=== PATIENT | female | born 1945 | race Caucasian/White ===

== ENCOUNTER → 2024-01-05 13:20 | Outpatient (REF) | payer MEDICARE, BC, SELFPAY | LOC: HWWDC 13:20 | PROVIDERS: ATTENDING PHYSICIAN Family Medicine | DX: Z12.31 Encounter for screening mammogram for malignant neoplasm of breast (principal) | CPT/HCPCS: 77063; 77067 ==

== ENCOUNTER → 2024-10-21 15:09 | Outpatient (REF) | payer MEDICARE, BC, SELFPAY ==
[2024-10-21 15:40] LABS: Hematocrit 46.3 % (37.0-47.0); Hemoglobin 15.7 g/dL (12.0-16.0); Mean Corp Hgb Conc. 33.9 g/dL (33.0-37.0); Mean Corpuscular Volume 88.0 fL (81.0-99.0); Nucleated Red Blood Cells % 0 %; Platelet Count 255 10^3/uL (130-400); Red Cell Dist. Width 13.2 % (11.5-14.5)
[2024-10-21 15:51] LABS: Urine Character Cloudy (Clear)
[2024-10-21 16:03] LABS: ALT (SGPT) 18 U/L (0-35); AST (SGOT) 22 U/L (14-36); Albumin 4.3 g/dl (3.5-5.0); Alkaline Phosphatase 75 U/L (38-126); Blood Urea Nitrogen 21 mg/dl (7-17); Calcium 9.6 mg/dl (8.4-10.2); Carbon Dioxide 23 mmol/L (22-30); Chloride 106 mmol/L (98-107); Glucose 177 mg/dl (70-99); Potassium 4.0 mmol/L (3.5-5.1); Sodium 137 mmol/L (135-145); Total Protein 6.8 g/dl (6.3-8.2); eGFR > 60.00
[2024-10-21 16:15] LABS: Urine Squamous Cell >30 /LPF (Few)
== END ==
LOC: REG 15:09
PROVIDERS: ATTENDING PHYSICIAN Nurse Practitioner Family; FAMILY PHYSICIAN Family Medicine
DX: R10.32 Left lower quadrant pain (principal); Z87.19 Personal history of other diseases of the digestive system
CPT/HCPCS: 36415; 80053; 81003; 81015; 85025; 87086

== ENCOUNTER 2024-10-23 13:42 | Emergency (ER) | payer MEDICARE, BC, SELFPAY ==
[2024-10-23 13:43] VITALS: BP 157/95
[2024-10-23 14:01] LABS: Hematocrit 46.6 % (37.0-47.0); Hemoglobin 16.2 g/dL (12.0-16.0); Mean Corp Hgb Conc. 34.8 g/dL (33.0-37.0); Mean Corpuscular Volume 88.3 fL (81.0-99.0); Nucleated Red Blood Cells % 0 %; Platelet Count 244 10^3/uL (130-400); Red Cell Dist. Width 13.0 % (11.5-14.5)
[2024-10-23 14:11] LABS: ALT (SGPT) 19 U/L (0-35); AST (SGOT) 24 U/L (14-36); Albumin 4.4 g/dl (3.5-5.0); Alkaline Phosphatase 64 U/L (38-126); Blood Urea Nitrogen 17 mg/dl (7-17); Calcium 10.0 mg/dl (8.4-10.2); Carbon Dioxide 27 mmol/L (22-30); Chloride 107 mmol/L (98-107); Glucose 106 mg/dl (70-99); Potassium 4.3 mmol/L (3.5-5.1); Sodium 139 mmol/L (135-145); Total Protein 7.3 g/dl (6.3-8.2); eGFR 58.02
--- NOTE | 2024-10-23 15:51 | ED.GENMED ---
History of Present Illness
General
Chief Complaint: Back Pain
Source: patient
Exam Limitations: none
Time Seen by Provider: 10/23/24 15:36
History of Present Illness
History of Present Illness:
79-year-old female presents complaining of left lower back pain that radiates to the left lower quadrant. This has been getting worse over the past 3 to 4 days. Preceding this discomfort she states she was loading groceries into her car and
twisted her back and felt her pain started at that time. She saw her family doctor who did a urinalysis and they said there was some blood in the urine and they ordered blood work. I did want her to receive a CT scan. She denies any bowel or
bladder dysfunction. She does note some paresthesias to the lateral thigh on the left side. No fevers. No other complaints
Past History
Past History
ED Past Medical History: Asthma, Cancer (Right mastectomy) and HTN
ED Past Surgical History: Gynecological (Breast implants)
Social History
Tobacco: Non-smoker
Alcohol: Daily (wine 1 glass)
Personal:
Living: with family
Phy Exam
Physical Exam
Physical Exam:
General: Well-appearing female no acute respiratory distress
HEENT: Normocephalic atraumatic
Heart: Regular rate and rhythm
Lungs: Clear no wheeze
Abdomen is soft mildly tender to the left lower quadrant and left costovertebral angle. Nondistended
Extremities: No cyanosis
Skin warm no rash
Course
Orders/Labs/Results
Orders:
Orders
10/23/24 13:50
Complete Blood Count/With Diff Urgent
Comprehensive Metabolic Panel Urgent
10/23/24 15:46
Urinalysis Reflex To Culture Urgent
Date Specimen was Collected: 10/23/24
Time Specimen was Collected: 15:45
Urine Microscopic Reflex Cult Urgent
Urine Culture Urgent
MALENA Source: U
Specimen Description:
Date Specimen was Collected: 10/23/24
Time Specimen was Collected: 15:45
10/23/24 15:48
CT Abd/pelvis W Iv Cont Urgent
Comment:
Reason For Exam: llq pain
Abnormal Lab Results
10/23/24 10/23/24
13:50 15:46
Hgb 16.2 H g/dL
(12.0-16.0)
Lymphocytes % 16.7 L %
(20.5-51.1)
Glucose 106 H mg/dl
(70-99)
Ur Occult Blood Reflex 3+ A
(Negative)
Leukocyte Esterase Rfl 2+ A
(Negative)
Urine RBC 21-25 A /HPF
(0-2)
Urine WBC (Reflex) 11-15 A /HPF
(0-5)
Urine Bacteria (Reflex) Moderate A
(Negative)
Urine Albumin (Reflex) 1+ A
(Neg - Trace)
10/23/24 13:50
10/23/24 13:50
Vital Signs
Initial and Last Documented VS:
Initial Vital Signs
Temp Pulse Resp BP Pulse Ox
98 F 98 16 157/95 95
10/23/24 13:43 10/23/24 13:43 10/23/24 13:43 10/23/24 13:43 10/23/24 13:43
Last Documented Vital Signs
Temp Pulse Resp BP Pulse Ox
98 F 82 16 144/89 95
10/23/24 13:43 10/23/24 18:46 10/23/24 13:43 10/23/24 18:46 10/23/24 15:54
MDM/Problems Addressed
Differential Diagnosis Includes:
Lower back pain on left side and left lower quadrant pain. Consider musculoskeletal flank pain versus radiculopathy versus renal colic versus diverticulitis
CT pending. Urinalysis pending labs pending
*Pulse Oximetry
SaO2: 95
Oxygen Mode of Delivery: Room air
Patient hypoxic: no
*Critical Care Note
Total Time (30-74mins, 75-104mins- exclusive of procedures): Not Applicable
Update Note
Update Note:
CT demonstrates mild acute uncomplicated diverticulitis. Patient was started on Cipro and Flagyl. She is 24 hours into her regimen. I advise she continue this with clear liquids. No indication for admission. Stable for discharge
ED Attending Note
-
Portions of this chart may have been created with voice recognition software.� Occasional wrong word or��sound alike� substitutions may have occurred due to the inherent limitations of voice recognition software.
Discharge Plan
Departure
Patient Disposition: Home (Routine Discharge)
Date of Disposition: 10/23/24
Time of Disposition: 19:08
Patient with high blood pressure during this ER visit?: No
Discharge Problem:
Diverticulitis
Instructions: Diverticulitis
Prescriptions:
No Action
Albuterol Sulfate Hfa
90 mcg inhalation BID PRN (Reason: wheezing)
loratadine-pseudoephedrine [Claritin-D 24 Hour] 1 EACH tablet extended release 24 hr
1 ea PO DAILY PRN (Reason: allergies)
famotidine 20 MG tablet
20 mg PO DAILY
zolpidem 5 MG tablet
5 mg PO HSPRN PRN (Reason: sleep)
escitalopram oxalate 10 MG tablet
10 mg PO DAILY
fish oil-dha-epa 1 EACH capsule
1 ea PO DAILY
prednisone 10 MG tablet
10 mg PO DAILY Qty: 16 0RF
albuterol sulfate 1 PUFF HFA aerosol inhaler
2 puff inhalation R Q4HPRN PRN (Reason: cough) Qty: 1 1RF
Referrals:
Tamara Manrique DO [Family Provider, Family Practice]
Activity Restrictions/Additional Instructions:
Continue Cipro and Flagyl. Drink plenty clear liquids. You may use Tylenol if needed for pain. Return if worse otherwise follow-up with your doctor
Interventions
Interventions:
*Risk Screen - Suicide Last Done: 10/23/24 13:42
*General Assessment Last Done: 10/23/24 16:20
*Neglect/Abuse Screening Last Done: 10/23/24 13:42
ED-Musculoskeletal Assessment Last Done: 10/23/24 16:20
Discharge Date and Time
Print Language: MALDIVIAN
[2024-10-23 16:22] LABS: Urine Character Clear (Clear)
[2024-10-23 16:33] LABS: Urine Squamous Cell >30 /LPF (Few)
[2024-10-23 16:34] LABS: Urine Red Blood Cell 21-25 /HPF (0-2)
[2024-10-23 18:46] VITALS: BP 144/89
== END 2024-10-23 19:21 | disposition home or self-care (01) ==
LOC: EMR 13:42
PROVIDERS: Emergency Medicine; Physician Assistant; EMERGENCY PHYSICIAN Emergency Medicine; FAMILY PHYSICIAN Family Medicine
DX: K57.32 Diverticulitis of large intestine without perforation or abscess without bleeding (principal); M54.50 Low back pain, unspecified; R20.2 Paresthesia of skin; R31.9 Hematuria, unspecified; X50.1XXA Overexertion from prolonged static or awkward postures, initial encounter; Y93.89 Activity, other specified; I10 Essential (primary) hypertension; J45.909 Unspecified asthma, uncomplicated; Z85.3 Personal history of malignant neoplasm of breast; Z90.11 Acquired absence of right breast and nipple
CPT/HCPCS: 99284; 74177; 80053; 81003; 81015; 85025; 87086; Q9967

== ENCOUNTER → 2025-01-20 12:55 | Outpatient (REF) | payer MEDICARE, BC, SELFPAY | LOC: HWWDC 12:55 | PROVIDERS: ATTENDING PHYSICIAN Nurse Practitioner Adult Health | DX: Z12.31 Encounter for screening mammogram for malignant neoplasm of breast (principal) | CPT/HCPCS: 77063; 77067 ==